=== PATIENT | female | born 1985 | race Caucasian/White ===

== ENCOUNTER 2022-03-20 06:04 | Emergency (ER) | payer OTHER ==
[2022-03-20 06:16] VITALS: BP 162/121; PULSE 99; RESP 18; TEMP 98.5
--- NOTE | 2022-03-20 07:34 | ED ---
ENT HPI - General Chief complaint: ENT Stated complaint: ear infection Time Seen by Provider: 03/20/22 07:17 Source: patient, RN notes reviewed Mode of arrival: ambulatory Limitations: no limitations - History of Present Illness Initial comments: This is a 37-year-old female who presents to the emergency department for left ear pain. States that this has been present for the last 3-4 days and seems to be worsening. She is now feeling pain in the front and back of her ear. She also reports minor coughing starting today, but otherwise has no upper r espiratory symptoms. Also denies any fevers. She has had ear infections in the past, but states that it has been a couple of years. She has been taking a lot of ibuprofen, which she states is only minimally beneficial. Denies any fevers, chills, sore throat, cough, dyspnea, chest pain, palpitations, abdominal pain, nausea, vomiting, diarrhea, back pain, or headaches. MD complaint: ear pain Onset/Timin -: days(s) Location: L ear - Related Data Home Medications Medication Instructions Recorded Confirmed Dayquil 1 cap PO BID PRN 06/09/15 06/09/15 Previous Rx's Medication Instructions Recorded Albuterol Inhaler [Ventolin Hfa 1 - 2 puff INHALATION Q4-6H PRN #1 06/09/15 Inhaler] inhaler Azithromycin [Zithromax] 250 mg PO DIRECTED #6 tab 06/09/15 Benzonatate [Tessalon Perles] 100 mg PO TID #10 cap 06/09/15 predniSONE 50 mg PO DAILY #5 tab 06/09/15 Amoxicillin 875 mg PO Q12HR 7 Days #14 tablet 03/20/22 Hlewvzij-Kvidrcwfa-Wp Otic 4 drops LEFT EAR QID 7 Days #10 ml 03/20/22 [Cortisporin Otic Soln] Allergies Allergy/AdvReac Type Severity Reaction Status Date / Time Sulfa (Sulfonamide Allergy Rash/Hives Verified 03/20/22 23:42 Antibiotics) Review of Systems ROS Statement: Those systems with pertinent positive or pertinent negative responses have been documented in the HPI. ROS Other: All systems not noted in ROS Statement are negative. Past Medical History Past Medical History: No Reported History History of Any Multi-Drug Resistant Organisms: None Reported Past Surgical History: No Surgical Hx Reported Past Psychological History: No Psychological Hx Reported Smoking Status: Never smoker Past Alcohol Use History: Rare Past Drug Use History: None Reported General Exam Limitations: no limitations General appearance: alert, in no apparent distress Head exam: Present: atraumatic, normocephalic, normal inspection ENT exam: Present: other (Left TM erythema and bulging. Movement of the tragus elicits pain.) Respiratory exam: Present: normal lung sounds bilaterally. Absent: respiratory distress, wheezes, rales, rhonchi, stridor Cardiovascular Exam: Present: regular rate, normal rhythm, normal heart sounds. Absent: systolic murmur, diastolic murmur, rubs, gallop, clicks Neurological exam: Present: alert, oriented X3, CN II-XII intact Psychiatric exam: Present: normal affect, normal mood Skin exam: Present: warm, dry, intact, normal color. Absent: rash Course Vital Signs 03/20/22 06:14 Temperature 98.5 F Pulse Rate 99 Respiratory 18 Rate Blood Pressure 162/121 O2 Sat by Pulse 97 Oximetry Medical Decision Making - Medical Decision Making This is a 37-year-old female who presents to the emergency department for left ear pain. Was pt. sent in by a medical professional or institution? @ -No Did you speak to anyone other than the patient for history? @ -No Did you review nursing and triage notes? @ -Agree, accurate with regards to the patient's symptoms. Were old charts reviewed? @ -No Differential Diagnosis? @ -Otitis media, otitis externa, eustachian tube dysfunction, allergic rhinitis, barotrauma, bullous myringitis, this is not meant to be an all- inclusive list. What testing was considered but not performed? (CT, X-rays, U/S, labs)? Why? @ -None What meds were considered but not given? Why? @ -None Did you discuss the management of the patient with other professionals? @ -No Did you reconcile home meds? @ -No Was smoking cessation discussed for >3mins.? @ -No Was critical care preformed (if so, how long)? @ -No Were there social determinants of health that impacted care today? How? (Homelessness, low income, unemployed, alcoholism, drug addiction, transportation, low edu. Level, literacy, decrease access to med. care, assisted, rehab)? @ -No Was there de-escalation of care discussed even if they declined? (Discuss DNR or withdrawal of care, Hospice)? @ -No What co-morbidities impacted this encounter? (DM, HTN, Smoking, COPD, CAD, Cancer, CVA, Hep., AIDS, mental health diagnosis, sleep apnea, morbid obesity)? @ -None. Was patient admitted / discharged? @ -Discharged. Physical examination is consistent with both otitis media and otitis externa. Prescription for Amoxicillin and Cortisporin ear drops provided with dosing instructions reviewed. Advised ibuprofen and Tylenol for pain relief. She is also advised to follow up with her primary care provider next week to ensure that this is continuing to improve. Drug Therapy requiring intensive monitoring for toxicity (Heparin, Nitro, Insulin, Cardizem)? @ -None Were any procedures done? @ -None Diagnosis/symptom? @ -Otitis media Acute, or Chronic, or Acute on Chronic? @ -Acute Uncomplicated (without systemic symptoms) or Complicated (systemic symptoms)? @ -uncomplicated Side effects of treatment? @ -Adverse effects to the amoxicillin. Exacerbation, Progression, or Severe Exacerbation] @ -Not applicable Poses a threat to life or bodily function? @ -No Diagnosis/symptom? @ -Otitis externa Acute, or Chronic, or Acute on Chronic? @ -Acute Uncomplicated (without systemic symptoms) or Complicated (systemic symptoms)? @ -Uncomplicated Side effects of treatment? @ -Adverse effects to the Cortisporin ear drops. Exacerbation, Progression, or Severe Exacerbation] @ -Not applicable. Poses a threat to life or bodily function? @ -No Return precautions reviewed in depth, the patient is instructed to return to the emergency department with any new, worsening, or concerning symptoms. Patient verbalized understanding. This case was discussed in detail with the attending ED physician. Presentation, findings, and treatment plan discussed in detail as well. Disposition Clinical Impression: Otitis media, Otitis externa Disposition: HOME SELF-CARE Instructions (If sedation given, give patient instructions): Ear Infection (ED) Additional Instructions: Return to the emergency department with any new, worsening, or concerning symptoms. Take the antibiotic as prescribed for 7 days. The eardrops will be used as 4 drops in the left ear 4 times daily for 7 days. Continue to alternate with ibuprofen and Tylenol for pain relief. Follow up with your primary care provider in 1-2 days. Prescriptions: Amoxicillin 875 mg PO Q12HR 7 Days #14 tablet Mthznrnm-Xplzawmee-Qq Otic [Cortisporin Otic Soln] 4 drops LEFT EAR QID 7 Days #10 ml Is patient prescribed a controlled substance at d/c from ED?: No Referrals: None,Stated [Primary Care Provider] - 1-2 days
== END 2022-03-20 08:00 | disposition home or self-care (01) ==
LOC: EC 06:04
DX: H66.92 Otitis media, unspecified, left ear (principal); H60.92 Unspecified otitis externa, left ear; Z88.2 Allergy status to sulfonamides
CPT/HCPCS: 99282

== ENCOUNTER 2022-03-20 23:34 | Emergency (ER) | payer OTHER ==
[2022-03-20 23:42] VITALS: TEMP 97.9
--- NOTE | 2022-03-21 02:39 | ED ---
Anxiety HPI - General Chief Complaint: Anxiety Stated Complaint: Chest pain, numbness in hands Time Seen by Provider: 03/21/22 00:13 Source: patient Mode of arrival: ambulatory - History of Present Illness MD Complaint: anxiety, heart racing -: hour(s) Symptoms: palpitations, extremity numbness/tingling, perioral numbness/tingling Place: home Previous History of Same: Yes Severity: moderate Quality: improving Provoking factors: medication change Improves With: nothing Worsens With: nothing Associated symptoms: palpitations - Related Data Home Medications: Home Medications Medication Instructions Recorded Confirmed Dayquil 1 cap PO BID PRN 06/09/15 06/09/15 Previous Rx's Medication Instructions Recorded Albuterol Inhaler [Ventolin Hfa 1 - 2 puff INHALATION Q4-6H PRN #1 06/09/15 Inhaler] inhaler Azithromycin [Zithromax] 250 mg PO DIRECTED #6 tab 06/09/15 Benzonatate [Tessalon Perles] 100 mg PO TID #10 cap 06/09/15 predniSONE 50 mg PO DAILY #5 tab 06/09/15 Amoxicillin 875 mg PO Q12HR 7 Days #14 tablet 03/20/22 Degzdqnn-Iquzbxypb-Bg Otic 4 drops LEFT EAR QID 7 Days #10 ml 03/20/22 [Cortisporin Otic Soln] Allergies/Adverse Reactions: Allergies Allergy/AdvReac Type Severity Reaction Status Date / Time Sulfa (Sulfonamide Allergy Rash/Hives Verified 03/20/22 23:42 Antibiotics) Review of Systems ROS Statement: Those systems with pertinent positive or pertinent negative responses have been documented in the HPI. ROS Other: All systems not noted in ROS Statement are negative. Constitutional: Denies: fever, chills ENT: Denies: throat pain Respiratory: Denies: cough, dyspnea Cardiovascular: Reports: palpitations. Denies: chest pain Gastrointestinal: Denies: abdominal pain, vomiting, diarrhea Genitourinary: Denies: dysuria Musculoskeletal: Denies: back pain Skin: Denies: rash Neurological: Denies: headache, weakness Past Medical History Past Medical History: No Reported History History of Any Multi-Drug Resistant Organisms: None Reported Past Surgical History: No Surgical Hx Reported Past Psychological History: No Psychological Hx Reported Smoking Status: Never smoker Past Alcohol Use History: Rare Past Drug Use History: None Reported General Exam Limitations: no limitations General appearance: alert, in no apparent distress, anxious Head exam: Present: atraumatic, normocephalic Eye exam: Present: normal appearance. Absent: scleral icterus, conjunctival in jection Neck exam: Present: normal inspection Respiratory exam: Present: normal lung sounds bilaterally. Absent: respiratory distress, wheezes, rales, rhonchi, stridor Cardiovascular Exam: Present: regular rate, normal rhythm, normal heart sounds. Absent: systolic murmur, diastolic murmur, rubs, gallop GI/Abdominal exam: Present: soft. Absent: distended, tenderness, guarding, rebound, rigid, mass Extremities exam: Present: normal inspection, normal capillary refill. Absent: pedal edema, calf tenderness Back exam: Present: normal inspection. Absent: CVA tenderness (R), CVA tenderness (L) Neurological exam: Present: alert Skin exam: Present: warm, dry, intact, normal color. Absent: rash Course Vital Signs 03/20/22 03/21/22 23:40 03:16 Temperature 97.9 F Pulse Rate 96 92 Respiratory 18 20 Rate Blood Pressure 179/140 160/90 O2 Sat by Pulse 97 98 Oximetry Medical Decision Making - Medical Decision Making This patient is a 37-year-old woman who presents to have evaluation for palpitations as well as perioral and extremity tingling. Patient was concerned that she had gone into atrial fibrillation. Patient did have ECG here which confirms there is no atrial fibrillation. Her other symptoms have resolved and she is feeling well, wanted to go home. Differential Diagnosis? @ - Differential diagnosis includes atrial fibrillation, other arrhythmia, palpitations, and anxiety EKG interpreted by me (3pts min.)? @ -yes X-rays interpreted by me (1pt min.)? @ no CT interpreted by me (1pt min.)? @ -no U/S interpreted by me (1pt. min.)? @ -[none] What testing was considered but not performed? (CT, X-rays, U/S, labs)? Why? @ [ What meds were considered but not given? Why? @ -[none] Did you discuss the management of the patient with other professionals? @ -no Did you reconcile home meds? @ -[none] Was smoking cessation discussed for >3mins.? @ -[none] Was critical care preformed (if so, how long)? @ -[none] Were there social determinants of health that impacted care today? How? (Homelessness, low income, unemployed, alcoholism, drug addiction, transportation, low edu. Level, literacy, decrease access to med. care, long term, rehab)? @ -[no Was there de-escalation of care discussed even if they declined? (Discuss DNR or withdrawal of care, Hospice)? @ -[no What co-morbidities impacted this encounter? (DM, HTN, Smoking, COPD, CAD, Cancer, CVA, Hep., AIDS, mental health diagnosis, sleep apnea, morbid obesity)? @ -none Was patient admitted / discharged? @Discharged Undiagnosed new problem with uncertain prognosis? @ -[none] Drug Therapy requiring intensive monitoring for toxicity (Heparin, Nitro, Insulin, Cardizem)? @ -[none] Were any procedures done? @ -[none] Diagnosis/symptom? @ -Anxiety Acute, or Chronic, or Acute on Chronic? @ -[Acute Uncomplicated (without systemic symptoms) or Complicated (systemic symptoms)? @ -[Uncomplicated Side effects of treatment? @ -[none] Exacerbation, Progression, or Severe Exacerbation] @ -[no] Poses a threat to life or bodily function? @ -[no] - EKG Data -: EKG Interpreted by Me EKG shows normal: sinus rhythm, axis (Normal), intervals (Normal), QRS complexes (Normal), ST-T waves (Normal) Rate: normal (Rate 91 bpm) Interpretation: normal EKG Disposition Clinical Impression: Acute anxiety Disposition: HOME SELF-CARE Condition: Good Instructions (If sedation given, give patient instructions): Generalized Anxiety Disorder (ED) Is patient prescribed a controlled substance at d/c from ED?: No Referrals: None,Stated [Primary Care Provider] - 1-2 days
[2022-03-21 03:17] VITALS: BP 160/90; PULSE 92; RESP 20
== END 2022-03-21 03:16 | disposition home or self-care (01) ==
LOC: EC 23:34
DX: F41.9 Anxiety disorder, unspecified (principal); Z88.2 Allergy status to sulfonamides
CPT/HCPCS: 93005; 99283

== ENCOUNTER → 2023-01-20 | Outpatient (CLI) | payer OTHER ==
[2023-01-21 03:20] LABS: ALT 22 U/L (8-44); AST 24 U/L (13-35); Albumin 4.2 d/dL (3.8-4.9); Albumin/Globulin Ratio 1.62 Ratio (1.60-3.17); Alkaline Phosphatase 93 U/L (41-126); BUN/Creat Ratio 8.44 Ratio (12.00-20.00); Blood Urea Nitrogen 7.6 mg/dL (9.0-27.0); Calcium 9.4 mg/dL (8.7-10.3); Carbon Dioxide 22.1 mmol/L (21.6-31.8); Chloride 106 mmol/L (96-109); Chol/HDL Ratio 5.92 Ratio; Globulin 2.6 d/dL (1.6-3.3); Glucose 106 mg/dL (70-110); LDL Cholesterol,Calculated 121.8 mg/dL (0.0-131.0); Potassium 4.2 mmol/L (3.5-5.5); Sodium 140 mmol/L (135-145); Total Bilirubin 0.2 mg/dL (0.3-1.2); Total Protein 6.8 d/dL (6.2-8.2)
[2023-01-21 04:39] LABS: HCT 41.5 % (37.2-46.3); HGB 12.7 d/dL (12.0-15.0); MCH 26.1 pg (27.0-32.0); MCHC 30.6 d/dL (32.0-37.0); MCV 85.4 FL (80.0-97.0); Mean Platelet Volume 11.5 FL (9.5-12.2); NRBC Per 100 WBC 0 X 10*3/uL (0.00-0.01); Platelet Count 333 X 10*3/uL (140-440); RBC 4.86 X 10*6/uL (4.10-5.20); RDW 14.1 % (11.5-14.5); WBC 8.83 X 10*3/uL (4.50-10.00)
[2023-01-21 04:40] LABS: Basophils # (A) 0.03 X 10*3/uL (0.00-0.10); Basophils % (A) 0.3 %; Eosinophils # (A) 0.61 X 10*3/uL (0.04-0.35); Eosinophils % (A) 6.9 %; Lymphocytes # (A) 1.72 X 10*3/uL (0.90-5.00); Lymphocytes % (A) 19.5 %; Monocytes % (A) 6.8 %; Neutrophils # (A) 5.85 X 10*3/uL (1.80-7.70); Neutrophils % (A) 66.3 %
== END | disposition home or self-care (01) ==
LOC: LABWHC1 11:56
PROVIDERS: ATTEND Family Medicine
DX: I10 Essential (primary) hypertension (principal); E66.01 Morbid (severe) obesity due to excess calories; F41.8 Other specified anxiety disorders
CPT/HCPCS: 36415; 80053; 80061; 82306; 83036; 84443; 85025

== ENCOUNTER → 2023-08-22 | Outpatient (CLI) | payer OTHER ==
--- NOTE | 2023-08-22 19:47 | US ---
EXAMINATION TYPE: US bladder DATE OF EXAM: 08/22/2023 COMPARISON: NONE CLINICAL INDICATION: Female, 38 years old with history of R32 UNSPECIFIED URINARY INCONTINENCE R20.0 ANESTHE; Patient states she doesn't feel like she has to go to the bathroom until she feels wet. TECHNIQUE: Multiple sonographic images of the bladder are obtained. FINDINGS: EXAM MEASUREMENTS: Post Void Residual Volume: 3.9 mL Color Doppler performed to assess ureteral jets. Bilateral Jets seen Normal Post Void Residual (less than 50ml): Yes Urinary bladder is anechoic without wall thickening identified. No filling defects demonstrated. No w all thickening. Bilateral ureteral jets identified. Normal postvoid residual of less than 50. IMPRESSION: Unremarkable urinary bladder with normal post void residual of 3.9 mL.
== END | disposition home or self-care (01) ==
LOC: RADUSWWP 12:38
PROVIDERS: ATTEND Internal Medicine
DX: R32 Unspecified urinary incontinence (principal); R20.0 Anesthesia of skin; R20.2 Paresthesia of skin
CPT/HCPCS: 76857